=== PATIENT | male | born 1990 | race Caucasian/White ===

== ENCOUNTER 2020-05-11 14:22 | Emergency (ER) | payer BC, SELFPAY ==
[2020-05-11 14:51] VITALS: BP 148/72; PULSE 85; RESP 16; TEMP 36.9; O2SAT 99; BMI 25.8
[2020-05-11 15:08] LABS: UTC Strep Screen (Rapid) Positive (Negative)
--- NOTE | 2020-05-11 15:09 | HMH.EDUTC ---
[facility] [place] Disposition Clinical Impression: Strep throat Disposition: Home, Self-Care Condition on Discharge: Good Instructions: DI for Strep Throat, Strep Throat, Strep Throat (Alternative Therapy) Additional Instructions: *change toothbrush and toothpaste 24-48 hours after starting to take antibiotics so you do not reinfect yourself Monitor Temp. Tylenol and/or Ibuprofen as needed. ER if fever is no less than 101 despite alternating Tylenol and Ibuprofen * Encourage fluids, water, Gatorade, powerade, pedialyte if infant/toddler/or child *Cold fluids, popsicles and ice cream may feel good on his throat *Monitor Temp, Over the counter Motrin or Tylenol as directed/as needed Tylenol every 4 hours and Motrin every 6 hours (as long as your family doctor has told you that you can take it) for fever or pain. and straight to ER if unable to lower temp less than 101.0 after medication given *Warm salt water gargles may help to soothe the throat *Throat Lozenges *Warm fluids like tea with honey may help to soothe the throat *Sleep elevated *Humidifier/Vaporizer Follow up IMMEDIATELY for new or worsening symptoms or no Noticeable improvement over the next 48-72 hours. 911 for difficulty breathing or swallowing Referrals: Bharath Helm [Primary Care Provider] - As needed Time of Disposition: 15:13 Medical Decision Making - Odell Inquiry Pt receiving controlled substance: No Odell was queried for this patient: No Vital Signs: 05/11/20 14:51 Temperature 98.4 F Temperature Source Oral Pulse Rate [Right Brachial] 85 Respiratory Rate 16 Blood Pressure [Right Arm] 148/72 H Blood Pressure Mean [Right Arm] 97 Blood Pressure Source [Right Arm] Automatic Cuff Blood Pressure Position [Right Arm] Sitting 02 Sat by Pulse Oximetry 99 Oxygen Delivery Method Room Air - Lab Data Lab results reviewed: Yes: I reviewed the patient's lab results. Lab Results 05/11/20 15:06: Strep Scn Rapid Clinic Positive A Orders (Tests/Meds): ED MEDICATIONS Generic Name Dose Route Start Last Admin Trade Name Freq PRN Reason Stop Dose Admin Penicillin G Benzathine 1,200,000 unit 05/11/20 15:10 Bicillin La 1,200,000 Units/2ml Syringe IM 05/11/20 15:11 ONCE ONE Protocol [facility] [place] HPI - General Stated complaint: cold chills @ pm, bad sweats, fever Time Seen by Provider: 05/11/20 15:09 Mode of Arrival: Ambulatory Source of Information: Patient Limitations: No Limitations Description of Symptoms (Recalled from Triage Doc. by RN): PATIENT C/O SORE THROAT X 2 WEEKS AND RECENTLY STARTED RUNNING A FEVER AND CHILLS AT NIGHT. ALSO C/O COUGH AND HEADACHE HEENT Symptoms (Recalled from RN notes): Yes Resp Symptoms (Recalled from RN notes): Yes Skin Symptoms (Recalled from RN notes): No MS Symptoms (Recalled from RN notes): No Functional Status (Recalled from RN notes): WNL - History of Present Illness Provider Complaint: Patient state that he has had sore throat on and off for a couple of weeks now having headaches, body aches and chills States that he is not sure if he may have strep or not States that today he still wasnt feeling well so he came in to get checked - Related Data Home Medications Medication Instructions Recorded Confirmed Buprenorphine HCl/Naloxone HCl 1 each SL DAILY 05/11/20 05/11/20 [Suboxone 8mg/2mg ODT] Allergies Allergy/AdvReac Type Severity Reaction Status Date / Time No Known Allergies Allergy Unverified 08/24/17 14:56 - Worker's Comp Is this a Worker's Comp case?: No [facility] History - Hepatitis A Screen Drug use history?: No High risk sexual behaviors?: No History of sexually transmitted infection?: No Currently employed?: No Childcare worker?: No Do you have indoor plumbing?: Yes Do you have electricity?: Yes Attestation statement:: This patient has been screened for Hepatitis A risk factors. I have reviewed the patient's past medical history: Yes - Social History Smok
[2020-05-11 15:28] VITALS: BP 148/72; PULSE 85; RESP 16; TEMP 36.9; O2SAT 99
== END 2020-05-11 15:31 | disposition home or self-care (01) ==
PROVIDERS: Emergency Provider Nurse Practitioner; PCP Internal Medicine
DX: J02.0 Streptococcal pharyngitis (principal); F17.210 Nicotine dependence, cigarettes, uncomplicated
CPT/HCPCS: 87880; 96372; 99202; J0561

== ENCOUNTER 2021-08-20 09:48 | Emergency (ER) | payer OTHER, SELFPAY ==
[2021-08-20 09:54] VITALS: PULSE 77; RESP 19; O2SAT 100; BMI 26.6
[2021-08-20 11:00] VITALS: BP 135/86; PULSE 77; RESP 18; TEMP 36.7; O2SAT 100; BMI 25.8
--- NOTE | 2021-08-20 11:18 | XR_ITS ---
PROCEDURE: XR FOOT RT MIN 3V CLINICAL INDICATION: STEPPED ON NAIL COMPARISON: No exams were available for comparison FINDINGS: No fracture or dislocation. No lytic or blastic change. There is normal mineralization. The joint spaces are well-preserved. No significant degenerative/arthritic changes. No erosive changes evident. Other findings:There are hypertrophic changes along the distal and dorsal aspect of the 1st metatarsal. There is a small focal area of increased density along the plantar surface of the head of the 5th metatarsal which may represent a small sesamoid bone. One cannot exclude the possibility of foreign body. Please correlate patient's area of pain and tenderness IMPRESSION: There is a small focal area of increased density along the plantar surface of the head of the 5th metatarsal which may represent a small sesamoid bone. One cannot exclude the possibility of foreign body. Please correlate patient's area of pain and tenderness. The head of the 1st metatarsal is not well delineated on the lateral view due to the other overlapping bony structures. Dictated by: Ryan York MD 08/20/2021 12:10 Ryan York MD in OV 08/20/2021 12:10
--- NOTE | 2021-08-20 11:36 | HMH.EDUTC ---
[facility] [place] Clinical Impression: Puncture wound Disposition: Home, Self-Care Condition on Discharge: Good Instructions: DI for Puncture Wound, DTaP Vaccine Additional Instructions: Soak foot several times daily in warm water and epson salt Clean well with antibacterial soap and water Take antibiotics as prescribed Follow up with your Family Doctor if no improvement or any worsening of symptoms Follow up with Podiatry if any worsening of symptoms Prescriptions: Ibuprofen [Ibuprofen 600mg Tablet] 600 mg PO Q6HP PRN #20 tab PRN Reason: Moderate Pain Transmission Status: Received by [facility] clindamycin HCL [Clindamycin HCl] 300 mg PO Q8H 10 Days #30 cap Transmission Status: Received by [facility] Referrals: Bharath Helm [Primary Care Provider] - As needed Karmen Buchanan DPM [Staff Physician] - Forms: Work/School Release Time of Disposition: 12:03 Medical Decision Making - Odell Inquiry Pt receiving controlled substance: No Odell was queried for this patient: No Vital Signs: 08/20/21 09:54 08/20/21 11:00 08/20/21 12:14 Temperature 98.1 F 98.1 F Temperature Source Oral Pulse Rate 77 Pulse Rate [Left Radial] 77 77 Respiratory Rate 19 18 18 Blood Pressure 135/86 Blood Pressure [Left Arm] 135/86 Blood Pressure Mean [Left Arm] 102 Blood Pressure Source [Left Arm] Automatic Cuff Blood Pressure Position [Left Arm] Sitting 02 Sat by Pulse Oximetry 100 100 Oxygen Delivery Method Room Air Room Air Orders (Tests/Meds): ED MEDICATIONS Discontinued Medications Generic Name Dose Route Start Last Admin Trade Name Freq PRN Reason Stop Dose Admin Tetanus/Reduced Diphtheria/Acell Pertussis 0.5 ml 08/20/21 09:59 08/20/21 11:07 Tet/Diphth/Pert-Adult 0.5ml Syringe IM 08/20/21 10:00 0.5 ml .ONCE ONE Administration - Radiology Data #1 Image(s): Foot/Toes Image Reviewed: Yes I reviewed the patient's radiology image Preliminary Findings: Normal/NAD Medical Decision Narrative: Medication discussed with pharmacy [facility] [place] - General Stated complaint: AO 1214 stepped on rusted nail, foot swelling Time Seen by Provider: 08/20/21 11:37 Mode of Arrival: Ambulatory Source of Information: Patient Limitations: No Limitations Description of Symptoms (Recalled from Triage Doc. by RN): PATIENT STATES HE STEPPED ON A DARRYN NAIL WITH RIGHT FOOT YESTERDAY AND HIS FOOT IS NOW RED AND SWOLLEN. PATIENT IS NOT UP TO DATE ON TDAP HEENT Symptoms (Recalled from RN notes): No Resp Symptoms (Recalled from RN notes): No Skin Symptoms (Recalled from RN notes): Yes MS Symptoms (Recalled from RN notes): No Functional Status (Recalled from RN notes): WNL - History of Present Illness Provider Complaint: Patient state that he stepped on darryn nail yesterday and it went through the bottom of his boot States that since then he has been having redness and swelling to his foot and he is not up to date on his tetanus so he came in to get a tetanus shot and see if may need some antibiotics for his foot - Related Data Home Medications Medication Instructions Recorded Confirmed Buprenorphine HCl/Naloxone HCl 1 each SL DAILY 05/11/20 05/11/20 [Suboxone 8mg/2mg ODT] Previous Rx's Medication Instructions Recorded Ibuprofen [Ibuprofen 600mg 600 mg PO Q6HP PRN #20 tab 08/20/21 Tablet] clindamycin HCL [Clindamycin HCl] 300 mg PO Q8H 10 Days #30 cap 08/20/21 Allergies Allergy/AdvReac Type Severity Reaction Status Date / Time No Known Allergies Allergy Verified 08/20/21 09:56 - Worker's Comp Is this a Worker's Comp case?: No H History - Hepatitis A Screen Drug use history?: No High risk sexual behaviors?: No History of sexually transmitted infection?: No Currently employed?: No Childcare worker?: No Do you have indoor plumbing?: Yes Do you have electricity?: Yes Attestation statement:: This patient has been scree
[2021-08-20 12:14] VITALS: BP 135/86; PULSE 77; RESP 18; TEMP 36.7; O2SAT 100
== END 2021-08-20 12:15 | disposition home or self-care (01) ==
PROVIDERS: Emergency Provider Nurse Practitioner; PCP Internal Medicine
DX: S91.331A Puncture wound without foreign body, right foot, initial encounter (principal); W22.8XXA Striking against or struck by other objects, initial encounter; Y92.89 Other specified places as the place of occurrence of the external cause; Z23 Encounter for immunization
CPT/HCPCS: 73630; 90471; 90715; 99202; G0463

== ENCOUNTER 2021-08-23 16:18 | Emergency (ER) | payer OTHER, SELFPAY ==
[2021-08-23 17:21] VITALS: BP 142/86; PULSE 94; RESP 18; TEMP 37; O2SAT 98; BMI 24.3
[2021-08-23 18:00] LABS: Basophils # 0.1 K/mm3 (0-0.2); Basophils % 0.9 % (0.1-2.0); Eosinophils # 0.2 K/mm3 (0.0-0.4); Eosinophils % 1.5 % (0.1-12.0); Hematocrit 41.9 % (42.0-52.0); Hemoglobin 14.6 g/dL (14.1-18.0); Lymphocytes # 2.6 K/mm3 (0.7-4.5); Lymphocytes % 23.4 % (10-50); Mean Corpuscular HGB Conc 34.8 g/dL (31.8-35.4); Mean Corpuscular Hemoglobin 28.1 pg (27.0-31.2); Mean Corpuscular Volume 80.8 fl (80-94); Mean Platelet Volume 7.3 fl (7.4-10.4); Monocytes # 0.6 K/mm3 (0.1-1.0); Monocytes % 5.2 % (1.7-9.3); Neutrophils # 7.6 K/mm3 (1.8-7.8); Neutrophils % 68.9 % (37.0-80.0); Platelet Count 267 K/mm3 (142-424); Red Blood Count 5.19 M/mm3 (4.60-6.20); Red Cell Distribution Width 13.9 % (11.5-17.5)
[2021-08-23 18:10] LABS: Chloride 99 mmol/L (98-107); Potassium 3.3 mmoL/L (3.5-5.1); Sodium 139 mmol/L (136-145)
--- NOTE | 2021-08-23 18:10 | HMH.EDUTC ---
[facility] [place] Disposition Clinical Impression: Infection of right foot Puncture wound of right foot Qualifiers: Encounter type: initial encounter Qualified Code(s): S91.331A - Puncture wound without foreign body, right foot, initial encounter Disposition: Still a Patient Condition on Discharge: Fair Referrals: Bharath Helm [Primary Care Provider] - Time of Disposition: 19:03 Medical Decision Making - Medical Records Medical records reviewed: No: I reviewed the patient's medical records. - Odell Inquiry Pt receiving controlled substance: No Vital Signs: 08/23/21 17:21 Temperature 98.6 F Temperature Source Oral Pulse Rate [Left] 94 H Respiratory Rate 18 Blood Pressure [Right Arm] 142/86 H Blood Pressure Mean [Right Arm] 104 02 Sat by Pulse Oximetry 98 - Lab Data Lab Results 08/23/21 17:43: WBC 11.0 H, RBC 5.19, Hgb 14.6, Hct 41.9 L, MCV 80.8, MCH 28.1, MCHC 34.8, RDW 13.9, Plt Count 267, MPV 7.3 L, Neut % (Auto) 68.9, Lymph % (Auto) 23.4, [place] % (Auto) 5.2, Eos % (Auto) 1.5, Baso % (Auto) 0.9, Neut # (Auto) 7.6, Lymph # (Auto) 2.6, [place] # (Auto) 0.6, Eos # (Auto) 0.2, Baso # (Auto) 0.1, ESR 19 H 08/23/21 17:43: Sodium 139, Potassium 3.3 L, Chloride 99, Carbon Dioxide 31 H, Anion Gap 12.3, BUN 12, Creatinine 1.10, Estimated Creat Clear 104, Estimated GFR 77, Est GFR ( Amer) 93, Glucose 99, Calcium 9.1, C-Reactive Protein 44.1 H Result diagrams: 08/23/21 17:43 08/23/21 17:43 Medical Decision Narrative: He was transferred to the er b/c of crp 44 and the presence of a foot infection. [facility] [place] HPI - General Stated complaint: stepped on nail, foot swelling Time Seen by Provider: 08/23/21 18:00 Mode of Arrival: Ambulatory Source of Information: Patient Limitations: No Limitations Description of Symptoms (Recalled from Triage Doc. by RN): pt stepped on a nail with his R foot on 08/19 and was seen in the [facility] 08/20. pt has been taking clindamycin. pts L foot, ankle and lower leg are edematous. pts foot is bright red and hot to the touch. HEENT Symptoms (Recalled from RN notes): No Resp Symptoms (Recalled from RN notes): No Skin Symptoms (Recalled from RN notes): No MS Symptoms (Recalled from RN notes): Yes Functional Status (Recalled from RN notes): wnl - History of Present Illness Provider Complaint: He stepped on a nail 4 days ago. He came here and was started on clindamycin. He states that since then he has had worsening pain and swelling. - Related Data Home Medications Medication Instructions Recorded Confirmed Buprenorphine HCl/Naloxone HCl 1 each SL DAILY 05/11/20 05/11/20 [Suboxone 8mg/2mg ODT] Previous Rx's Medication Instructions Recorded Ibuprofen [Ibuprofen 600mg 600 mg PO Q6HP PRN #20 tab 08/20/21 Tablet] clindamycin HCL [Clindamycin HCl] 300 mg PO Q8H 10 Days #30 cap 08/20/21 Allergies Allergy/AdvReac Type Severity Reaction Status Date / Time No Known Allergies Allergy Verified 08/20/21 09:56 - Worker's Comp Is this a Worker's Comp case?: No [facility] History - Hepatitis A Screen Drug use history?: No High risk sexual behaviors?: No History of sexually transmitted infection?: No Currently employed?: No Childcare worker?: No Do you have indoor plumbing?: Yes Do you have electricity?: Yes Attestation statement:: This patient has been screened for Hepatitis A risk factors. I have reviewed the patient's past medical history: No - Social History Smoking Status: Current every day smoker Tobacco Type: cigarettes # Packs/Day (cigarettes): 1 Alcohol Intake: never Occupational Status: other ROS Obtained: Yes All systems reviewed & no additional complaints - Constitutional Constitutional: Denies chills, Denies fever(s), Reports poor appetite, Reports malaise - Eyes Eyes: Denies eye discharge - ENT Ears, Nose, Mouth, and Throat: Denies sore throat - Cardiovascular Cardiovascular: Denies chest pain - Respiratory Respiratory: Denies chest c
[2021-08-23 18:13] LABS: Anion Gap 12.3 mEq/L (5-15); Blood Urea Nitrogen 12 mg/dl (9-20); Calcium 9.1 mg/dl (8.4-10.2); Carbon Dioxide 31 mmol/L (22.0-30.0); Creatinine Clearance Estimated 104 mL/min (50-200); Estimated Glomerular Filt Rate 77 ml/min (>60); GFR (African American) 93 ML/MIN (>60); Glucose 99 mg/dl (74-100)
[2021-08-23 18:19] LABS: C-Reactive Protein 44.1 mg/L (0-4)
[2021-08-23 18:40] LABS: Erythrocyte Sedimentation Rate 19 mm/hr (0-15)
--- NOTE | 2021-08-23 19:18 | CT_ITS ---
PROCEDURE INFORMATION: Exam: CT Right Lower Extremity With Contrast, Foot Exam date and time: 08/23/2021 7:18 PM Age: 31 years old Clinical indication: Injury or trauma; Other: Stepped on nail now infection; Blunt trauma; Right; Injury date: 08/23/2021; Patient HX: This is RT foot injury RT foot CT with contrast; Additional info: Foot injury RT foot stepped on nail TECHNIQUE: Imaging protocol: CT of the Right lower extremity with intravenous contrast was performed. Exam focused on the foot. Radiation optimization: All CT scans at this facility use at least one of these dose optimization techniques: automated exposure control; mA and/or kV adjustment per patient size (includes targeted exams where dose is matched to clinical indication); or iterative reconstruction. Contrast material: ISOVUE; Contrast volume: 100 ml; Contrast route: IV; COMPARISON: No relevant prior studies available. FINDINGS: Bones/joints: Normal. No acute fracture or dislocation. There are 2 benign bone islands present within the cuboid, thought to be of no clinical significance. Soft tissues: There is diffuse edema of soft tissues of the right foot. No evidence of subcutaneous emphysema. There is no evidence of peripherally enhancing collection to suggest the presence of abscess. IMPRESSION: 1. Diffuse soft tissue swelling of the right foot, compatible with cellulitis. No evidence of abscess. 2. No evidence of focal osseous destruction/osteomyelitis. 3. No evidence of radiopaque foreign body.
--- NOTE | 2021-08-23 20:21 | PC.NURSE ---
Spoke with Thomas with [facility] at this time for Vanc dosing. He is going to place orders for 1 time dose and cont infusion
--- NOTE | 2021-08-23 20:28 | PC.NURSE ---
Pt attempted to leave out exit door at this time. CORINNE Paiz noticed pt heading for exit with his IV still in so she attempted to stop him at exit. Pt opened door and his significant other was in doorway. Both the significant of and the pt began to curse at staff. This RN and Pattern Clerk CORINNE Price when over to de-escalate the situation. Pt asked why he could not have his significant other back in the ER and pt was educated on visitor policy. Pt stated I've been here for 5 and a half hours and y'all ain't done nothing for my foot. Significant other stated he should have gotten some medication by now. I explained to both of them that I had just spoke with the pharmacy in regards to his antibiotic dosing and reminded them that he had just came over from the [facility] at 7:30pm and his scans had just been read by radiology a short time ago. Pt continued to argue and curse staff while Chencho removed IV from pt.
--- NOTE | 2021-08-23 20:31 | PC.NURSE ---
Pt elected to leave facility at this time, rather than receive antibiotics or continue care. Pt was cursing staff and attempted to leave with IV intact. acoustical tile carpenters supervisor and 2 ER nurses at registration attempting to speak with patient. Pt is belligerent and will not agree to stay. IV removed and left facility.
--- NOTE | 2021-08-23 20:34 | HMH.EDGENADL ---
ED Disposition Clinical Impression: Infection of right foot Puncture wound of right foot Qualifiers: Encounter type: initial encounter Qualified Code(s): S91.331A - Puncture wound without foreign body, right foot, initial encounter Disposition: Left Against Medical Advice Condition on Discharge: Serious Referrals: Bharath Helm [Primary Care Provider] - - Critical Care Critical Care Time: No Attestation: On 08/23/21, the high probability of a clinically significant, sudden or life threatening deterioration of the following system(s) required my full and direct attention, intervention and personal management. The time I documented below is in addition to time spent performing reported procedures but includes the following listed in this critical care notation. Medical Decision Making - Odell Inquiry Pt receiving controlled substance: No Vital Signs: 08/23/21 17:21 Temperature 98.6 F Temperature Source Oral Pulse Rate [Left] 94 H Respiratory Rate 18 Blood Pressure [Right Arm] 142/86 H Blood Pressure Mean [Right Arm] 104 02 Sat by Pulse Oximetry 98 - Lab Data Lab Results 08/23/21 17:43: WBC 11.0 H, RBC 5.19, Hgb 14.6, Hct 41.9 L, MCV 80.8, MCH 28.1, MCHC 34.8, RDW 13.9, Plt Count 267, MPV 7.3 L, Neut % (Auto) 68.9, Lymph % (Auto) 23.4, [place] % (Auto) 5.2, Eos % (Auto) 1.5, Baso % (Auto) 0.9, Neut # (Auto) 7.6, Lymph # (Auto) 2.6, [place] # (Auto) 0.6, Eos # (Auto) 0.2, Baso # (Auto) 0.1, ESR 19 H 08/23/21 17:43: Sodium 139, Potassium 3.3 L, Chloride 99, Carbon Dioxide 31 H, Anion Gap 12.3, BUN 12, Creatinine 1.10, Estimated Creat Clear 104, Estimated GFR 77, Est GFR ( Amer) 93, Glucose 99, Calcium 9.1, C-Reactive Protein 44.1 H Result diagrams: 08/23/21 17:43 08/23/21 17:43 Orders (Tests/Meds): ED MEDICATIONS Generic Name Dose Route Start Last Admin Trade Name Freq PRN Reason Stop Dose Admin Piperacillin Sod/Tazobactam 50 mls @ 100 mls/hr 08/23/21 20:15 Sod 3.375 gm/ Sodium Chloride IV 09/06/21 20:14 Q8H ROMINA Vancomycin/PEG/NADA/Lysine/Water 1.5 gm in 300 mls @ 150 mls/hr 08/23/21 20:30 Vancomycin 1.5gm/300ml (Peg) Premix IV 08/23/21 22:29 ONCE ONE Vancomycin/PEG/NADA/Lysine/Water 1.5 gm in 300 mls @ 150 mls/hr 08/24/21 09:00 Vancomycin 1.5gm/300ml (Peg) Premix IV 09/07/21 08:59 Q12H ROMINA Miscellaneous 1 each 08/23/21 20:15 Vancomycin Consult Request * 09/22/21 20:14 CONSULT PHARMACY ROMINA Discontinued Medications Generic Name Dose Route Start Last Admin Trade Name Freq PRN Reason Stop Dose Admin Potassium Chloride 40 meq 08/23/21 20:14 Potassium Chloride 20meq Tab PO 08/23/21 20:15 ONCE ONE ORDERS Category Date Time Status CT foot RT w con Stat Cat Scan 08/23/21 19:18 Taken Medical Decision Narrative: In summary this is a 31-year-old male who presents to the emergency department with infection of his right foot. On Wednesday he stepped on a nail and has been taking clindamycin without improvement. Differential diagnosis includes cellulitis, abscess, osteomyelitis, bacteremia. Labs from urgent treatment center reviewed and the patient has a slight leukocytosis to 11, elevated CRP of 44, slight hypokalemia to 3.3. Physical exam is very concerning for significant cellulitis has now failed outpatient therapy. Given this CT of the foot was ordered and the patient was started on vancomycin and Zosyn. He was also given oral potassium replacement. On my initial assessment I discussed with the patient that he would require admission given the significance of his infection and his failure of outpatient management. The patient voiced understanding and seemed okay with this. A few minutes later there was yelling in the hallway between nursing staff and the patient and the patient eloped. I was told he was very angry because he could not have a visitor. During my initial assessment I did emphasize the need for gets of his infectio
[2021-08-23 20:59] VITALS: BP 00/0; PULSE 0; RESP 0; TEMP -17.7; TEMP 0; O2SAT 0
--- NOTE | 2021-08-23 21:39 | PC.NURSE ---
notified at 2030 pt elected to leave without treatment to go somewhere else
== END 2021-08-23 21:42 | disposition left against medical advice (07) ==
LOC: UTC 16:21 → ER 18:59
PROVIDERS: Nurse Practitioner Family; Emergency Provider Emergency Medicine; PCP Internal Medicine
DX: L08.9 Local infection of the skin and subcutaneous tissue, unspecified (principal); S91.331A Puncture wound without foreign body, right foot, initial encounter; F17.210 Nicotine dependence, cigarettes, uncomplicated; K50.90 Crohn's disease, unspecified, without complications
CPT/HCPCS: 73701; 80048; 85025; 85651; 86140; 99281; Q9967

== ENCOUNTER 2023-02-06 22:00 | Inpatient (IN) | payer MEDICAID, SELFPAY ==
[2023-02-06 22:05] VITALS: BMI 28.7
--- NOTE | 2023-02-06 22:05 | ECG_ITS ---
APPROVED REPORT Exam: Resting ECG HR:103 bpm ECG Measurements Heart Rate 103 AXES MD 128 P 58 QRSd 102 QRS 64 QT 299 T 53 QTc 358 Conclusion SINUS TACHYCARDIA O/w NORMAL ECG UNCONFIRMED REPORT Electronically signed by : Jayden Deluca MD 02/07/2023 11:31:46
--- NOTE | 2023-02-06 22:05 | CT_ITS ---
PROCEDURE INFORMATION: Exam: CT Head Without Contrast Exam date and time: 02/06/2023 10:30 PM Age: 32 years old Clinical indication: Other: Confusion TECHNIQUE: Imaging protocol: Computed tomography of the head without contrast. Radiation optimization: All CT scans at this facility use at least one of these dose optimization techniques: automated exposure control; mA and/or kV adjustment per patient size (includes targeted exams where dose is matched to clinical indication); or iterative reconstruction. REPORTING DATA: Count of CT and Cardiac NM exams in prior 12 months: This patient has received 0 known CTs and 0 known cardiac nuclear medicine studies in the 12 months prior to the current study. COMPARISON: No relevant prior studies available. FINDINGS: Brain: Streak hypodense artifacts particularly obscuring the posterior fossa. No evidence of mass effect or midline shift. The rhodes/white matter interfaces are preserved. The basal cisterns are patent. Cerebral ventricles: No ventriculomegaly. Paranasal sinuses: Visualized sinuses are unremarkable. No fluid levels. Mastoid air cells: Visualized mastoid air cells are well aerated. Bones/joints: Unremarkable. No acute fracture. Soft tissues: Unremarkable. IMPRESSION: 1. No CT evidence of intracranial hemorrhage, mass effect, midline shift or hydrocephalus. 2. Streak hypodense artifacts particularly obscuring the posterior fossa. Consider follow-up CT when clinically possible for better evaluation.
--- NOTE | 2023-02-06 22:05 | CT_ITS ---
PROCEDURE INFORMATION: Exam: CT Lumbar Spine With Contrast Exam date and time: 02/06/2023 11:40 PM Age: 32 years old Clinical indication: Other: Confusion; Additional info: Confusion, R/O abscess TECHNIQUE: Imaging protocol: Computed tomography of the lumbar spine with contrast. Radiation optimization: All CT scans at this facility use at least one of these dose optimization techniques: automated exposure control; mA and/or kV adjustment per patient size (includes targeted exams where dose is matched to clinical indication); or iterative reconstruction. Contrast material: ISOVUE; Contrast volume: 75 ml; Contrast route: IV; REPORTING DATA: Count of CT and Cardiac NM exams in prior 12 months: This patient has received 0 known CTs and 0 known cardiac nuclear medicine studies in the 12 months prior to the current study. COMPARISON: CT THORACIC SPINE W CON 02/06/2023 11:36 PM FINDINGS: Bones/joints: No acute fracture. Normal alignment. No evidence of bone destruction to suggest osteomyelitis. Spinal canal: Evaluation of the spinal canal contents is very limited as only bone windows were submitted for interpretation. L1-L2: No significant disc bulge or herniation. No severe spinal canal stenosis. No significant neural foraminal narrowing. L2-L3: No significant disc bulge or herniation. No severe spinal canal stenosis. No significant neural foraminal narrowing. L3-L4: No significant disc bulge or herniation. No severe spinal canal stenosis. No significant neural foraminal narrowing. L4-L5: Broad-based disc protrusion. Mild central canal stenosis. No significant neural foraminal narrowing. L5-S1: Broad-based epidural density causing moderate central canal stenosis and right lateral recess stenosis. Right foraminal discogenic/osteophytic complex causing right foraminal stenosis. Soft tissues: Markedly limited visualization as only Bone windows were submitted for interpretation. No pathologic enhancements are visualized. IMPRESSION: 1. No acute fractures or listhesis. 2. Evaluat one is ion of the spinal canal contents and soft tissue is very limited as only bone windows were submitted for interpretation. 3. L5-S1 broad-based epidural density causing moderate central canal stenosis and right lateral recess stenosis. Further characterization is not possible with the provided images. If infection remains of clinical concern consider contrast enhanced MRI. 4. Right foraminal discogenic/osteophytic complex causing right foraminal stenosis.
--- NOTE | 2023-02-06 22:05 | CT_ITS ---
PROCEDURE INFORMATION: Exam: CT Cervical Spine with Contrast Exam date and time: 02/06/2023 11:32 PM Age: 32 years old Clinical indication: Other: Confusion; Additional info: Confusion, R/O abcess TECHNIQUE: Imaging protocol: Computed tomography of the cervical spine with contrast. Radiation optimization: All CT scans at this facility use at least one of these dose optimization techniques: automated exposure control; mA and/or kV adjustment per patient size (includes targeted exams where dose is matched to clinical indication); or iterative reconstruction. Contrast material: ISOVUE; Contrast volume: 75 ml; Contrast route: IV; REPORTING DATA: Count of CT and Cardiac NM exams in prior 12 months: This patient has received 0 known CTs and 0 known cardiac nuclear medicine studies in the 12 months prior to the current study. COMPARISON: CT HEAD/BRAIN WO CON 02/06/2023 10:30 PM FINDINGS: Bones/joints: No acute fracture. Normal alignment. No evidence of bone destruction to suggest osteomyelitis. C2-C3: No significant disc bulge or herniation. No severe spinal canal stenosis. No significant neural foraminal narrowing. C3-C4: No significant disc bulge or herniation. No severe spinal canal stenosis. No significant neural foraminal narrowing. C4-C5: No significant disc bulge or herniation. No severe spinal canal stenosis. No significant neural foraminal narrowing. C5-C6: No significant disc bulge or herniation. No severe spinal canal stenosis. No significant neural foraminal narrowing. C6-C7: No significant disc bulge or herniation. No severe spinal canal stenosis. No significant neural foraminal narrowing. C7-T1: No significant disc bulge or herniation. No severe spinal canal stenosis. No significant neural foraminal narrowing. Lungs: Lung apices are normal. Soft tissues: Evaluation of the soft tissues is limited as only bone windows were submitted for interpretation. IMPRESSION: 1. No acute fractures or listhesis. 2. No evidence of central canal or foraminal stenosis.
--- NOTE | 2023-02-06 22:05 | CT_ITS ---
PROCEDURE INFORMATION: Exam: CT Thoracic Spine With Contrast Exam date and time: 02/06/2023 11:36 PM Age: 32 years old Clinical indication: Other: Confusion; Additional info: Confusion, R/O abscess TECHNIQUE: Imaging protocol: Computed tomography of the thoracic spine with contrast. Radiation optimization: All CT scans at this facility use at least one of these dose optimization techniques: automated exposure control; mA and/or kV adjustment per patient size (includes targeted exams where dose is matched to clinical indication); or iterative reconstruction. Contrast material: ISOVUE; Contrast volume: 75 ml; Contrast route: IV; REPORTING DATA: Count of CT and Cardiac NM exams in prior 12 months: This patient has received 0 known CTs and 0 known cardiac nuclear medicine studies in the 12 months prior to the current study. COMPARISON: CT CERVICAL SPINE W CON 02/06/2023 11:32 PM FINDINGS: Bones/joints: No acute fracture. Normal alignment. Disc desiccation and vertebral endplate erosions. No significant disc bulge or herniation. No severe spinal canal stenosis. No significant neural foraminal narrowing. Spinal canal: Visualization of the canal contents is limited by CT resolution. Soft tissues: Evaluation of the soft tissues is limited as only windows optimized bone, too grainy for soft tissue evaluation, were submitted for interpretation. IMPRESSION: 1. No acute fractures or listhesis. 2. Diffuse thoracic disc desiccation and vertebral endplate erosions.
--- NOTE | 2023-02-06 22:07 | XR_ITS ---
PROCEDURE INFORMATION: Exam: XR Chest Exam date and time: 02/06/2023 11:44 PM Age: 32 years old Clinical indication: Other: Confusion TECHNIQUE: Imaging protocol: Radiologic exam of the chest. Views: 1 view. COMPARISON: CT THORACIC SPINE W CON 02/06/2023 11:36 PM FINDINGS: Lungs: Well aerated with no evidence of consolidations, interstitial patterns or pulmonary nodules. Pleural spaces: No evidence of effusions or pneumothorax. Heart/Mediastinum: The cardiomediastinal silhouette is normal in size and configuration. There is no evidence of cardiomegaly. Bones/joints: Intact. IMPRESSION: No acute findings.
[2023-02-06 22:36] LABS: Basophils % 0.1 % (0.1-2.0); Eosinophils # 0.1 K/mm3 (0.0-0.4); Eosinophils % 0.6 % (0.1-12.0); Hemoglobin 13.4 g/dL (14.1-18.0); Lymphocytes % 6.2 % (10-50); Mean Corpuscular HGB Conc 33.4 g/dL (31.8-35.4); Mean Corpuscular Hemoglobin 27.2 pg (27.0-31.2); Mean Corpuscular Volume 81.5 fl (80-94); Mean Platelet Volume 7.6 fl (7.4-10.4); Monocytes # 0.3 K/mm3 (0.1-1.0); Monocytes % 1.8 % (1.7-9.3); Neutrophils # 14.7 K/mm3 (1.8-7.8); Neutrophils % 91.4 % (37.0-80.0); Platelet Count 235 K/mm3 (142-424); Red Blood Count 4.91 M/mm3 (4.60-6.20); Red Cell Distribution Width 13.8 % (11.5-17.5); White Blood Count 16.1 K/mm3 (4.8-10.8)
[2023-02-06 22:38] LABS: MANUAL DIFFERENTIAL MANUAL DIFFERENTIAL (MANUAL DIFF)
[2023-02-06 22:39] LABS: Chloride 97 mmol/L (98-107); Potassium 3.2 mmoL/L (3.5-5.1); Sodium 136 mmol/L (136-145)
[2023-02-06 22:41] LABS: Alanine Aminotransferase 24 U/L (12-78); Aspartate Amino Transferase 24 U/L (17-59); Blood Urea Nitrogen 14 mg/dl (9-20); Creatinine Clearance Estimated 134 mL/min (50-200); Estimated Glomerular Filt Rate 86 ml/min (>60); GFR (African American) 103 ML/MIN (>60)
[2023-02-06 22:42] LABS: Albumin Level 3.9 g/dl (3.5-5.0); Albumin/Globulin Ratio 1.1 (1.1-1.8); Alkaline Phosphatase 61 U/L (38-126); Anion Gap 13.2 mEq/L (5-15); Bilirubin,Total 0.8 mg/dl (0.2-1.3); Calcium 8.9 mg/dl (8.4-10.2); Carbon Dioxide 29 mmol/L (22.0-30.0); Creatine Kinase 27 U/L (55-170); Globulin 3.5 g/dL (1.3-3.2); Glucose 106 mg/dl (74-100); Lipase 45 U/L (23-300); Total Protein,Serum 7.4 g/dl (6.3-8.2)
[2023-02-06 22:43] LABS: Lactic Acid 1.5 mmol/L (0.7-2.1)
[2023-02-06 22:44] LABS: Acetaminophen < 10 ug/ml (10-30); Ethyl Alcohol < 10 mg/dl (0-10)
[2023-02-06 22:48] LABS: C-Reactive Protein 48.2 mg/L (0-4)
--- NOTE | 2023-02-06 22:48 | PC.NURSE ---
Pt gone to RAD via stretcher
[2023-02-06 22:49] LABS: Salicylate < 1.0 mg/dL (2.0-20.0)
--- NOTE | 2023-02-06 22:52 | PC.NURSE ---
Pt returned from RAD
--- NOTE | 2023-02-06 22:54 | PC.NURSE ---
Dr. Machado at
[2023-02-06 22:57] LABS: Troponin I 0.04 ng/ml (0.00-0.034)
[2023-02-06 23:03] LABS: Erythrocyte Sedimentation Rate 20 mm/hr (0-15)
[2023-02-06 23:07] LABS: Lymphocytes % 12 % (10-50); Monocytes % 1 % (2-9); Neutrophils % 87 % (42-76); Platelet Estimate Normal; Total Cells Counted 100
[2023-02-06 23:08] LABS: RBC Morphology Normal
[2023-02-06 23:26] VITALS: BP 101/59; PULSE 119; RESP 20; TEMP 39.5; O2SAT 96; BMI 29.5
[2023-02-06 23:28] LABS: Microscopic, Urine URINE MICROSCOPIC (MICROSCOPIC)
--- NOTE | 2023-02-06 23:30 | PC.NURSE ---
Patients family updated.
[2023-02-06 23:36] LABS: Appearance,Urine CLEAR (Clear); Bilirubin,Urine Negative (Negative); Blood, Urine 2+ (Negative); Color,Urine YELLOW (Yellow); Glucose,Urine (UA) Negative (Negative); Ketones,Urine Negative (Negative); Leukocyte Esterase,Urine Negative (Negative); Nitrate,Urine Negative (Negative); Protein,Urine Negative (Negative); Urobilinogen,Urine 0.2 EU/dl (0.2)
--- NOTE | 2023-02-06 23:42 | HMH.EDAMS ---
Discharge Plan Disposition Patient Disposition: Admitted Chief Complaint: Altered Mental Status Prescriptions Prescriptions: No Action buprenorphine-naloxone 1 EACH tablet, sublingual 1 each SL DAILY clindamycin HCl 300 MG capsule 300 mg PO Q8H 10 Days Qty: 30 0RF ibuprofen 600 MG tablet 600 mg PO Q6HP PRN (Reason: Moderate Pain) Qty: 20 0RF Discharge ED Provider: Carter (ED),Jean Lai Altered Mental Status HPI General Chief Complaint: Altered Mental Status Stated Complaint: AMS Time Seen by Provider: 02/06/23 22:00 Mode of Arrival: EMS Source of Information: Patient, Significant Other, EMS and Medical Record Limitations: Altered Mental Status Description of Symptoms (Recalled from ER Triage Doc. by RN): per EMS when they arrrived pt had AMS completely disoriented. EMS states the left to get food and before she left the pt seemed at his baseline. when she returned he was altered and was only answering baby and daddy. pt presents febrile at 103.1 rectal. pt has BLE edema +3 History of Present Illness HPI narrative: noted to be confused at 1930 and no trauma -concern for possible drug use per girlfriend-no rash - denied paulo JUAREZ complaint: altered mental status Onset (ago): hour(s) Timing confirmed by: family member Severity: moderate Consistency of symptoms: waxing and waning Context: drug abuse and recent fever Associated symptoms: denies other symptoms Related Data Home Medications Medication Instructions Recorded Confirmed buprenorphine 8 mg-naloxone 2 mg 1 each SL DAILY ADDICTION 05/11/20 05/11/20 sublingual tablet Allergies Allergy/AdvReac Type Severity Reaction Status Date / Time No Known Allergies Allergy Verified 08/20/21 09:56 [facility] Disclaimer: The information contained in this section may have been updated after the patient was seen, as this information can be updated by other users. Social History Smoking Status: Current every day smoker tobacco type: cigarettes packs per day: 1 alcohol intake: never current occupational status: other Travel in the last 8 weeks: None ROS Obtained: Yes unobtainable due to mental condition Physical Exam General General appearance: alert and other (confused ) Head Head exam: normocephalic Eye Eye exam: Present PERRL and EOMI ENT ENT exam: Present mucous membranes dry Neck Neck exam: Present full ROM and trachea midline; Absent meningismus Respiratory Respiratory exam: Present normal lung sounds bilaterally; Absent respiratory distress Cardiovascular Cardiovascular exam: Present regular rate; Absent systolic murmur or rubs Abdominal Exam Abdominal exam: Present soft; Absent tenderness Extremities Exam Extremities exam: Present full ROM Neurological Exam Neurological exam: Present alert, CN II-XII intact and other ([id number]); Absent oriented X3 or motor sensory deficit Skin Skin exam: Absent rash Medical Decision Making Medical Records Medical records reviewed: Yes I reviewed the patient's medical records. [place] Inquiry Pt receiving controlled substance: No Vital Signs: 02/06/23 23:26 02/06/23 23:46 02/07/23 00:00 Temperature 103.1 F H Temperature Source Rectal Pulse Rate 119 H 115 H Pulse Rate [Left] 119 H Respiratory Rate 20 20 22 Blood Pressure 85/46 L 72/49 L Blood Pressure [Right Arm] 101/59 L Blood Pressure Mean [Right Arm] 73 Blood Pressure Source Blood Pressure Source [Right Arm] Automatic Cuff Blood Pressure Position Blood Pressure Position [Right Arm] Sitting 02 Sat by Pulse Oximetry 96 93 L 93 L Oxygen Delivery Method Room Air Room Air 02/07/23 00:15 02/07/23 00:30 02/07/23 01:22 Temperature Temperature Source Pulse Rate 116 H 61 117 H Pulse Rate [Left] Respiratory Rate 24 11 L Blood Pressure 85/45 L 85/41 L 84/38 L Blood Pressure [Right Arm] Blood Pressure Mean [Right Arm] Blood Pressure Source Manual Cuff/ Doppler Blood Pressu
[2023-02-06 23:46] VITALS: BP 85/46; PULSE 119; RESP 20; O2SAT 93
[2023-02-06 23:48] LABS: Barbiturates Screen,Urine Negative ng/ml (<200)
[2023-02-06 23:49] LABS: Amphetamine/Metha Screen,Urine Negative ng/ml (<1000); Benzodiazepines Screen,Urine Negative ng/ml (<200); RBC,Urine Occasional #/hpf (0-3)
[2023-02-06 23:50] LABS: Methadone Screen,Urine Negative ng/ml (<300)
[2023-02-06 23:51] LABS: Cannabinoid Screen,Urine Negative ng/ml (<50); Cocaine Screen,Urine Negative ng/ml (<300)
--- NOTE | 2023-02-06 23:51 | PC.NURSE ---
Pt brother at
[2023-02-06 23:52] LABS: Opiate Screen,Urine Negative ng/ml (<300)
[2023-02-06 23:53] LABS: Phencyclidine Screen,Urine Negative ng/ml (<25)
[2023-02-07] VITALS (43 sets, daily range): BP systolic 72–136; BP diastolic 25–82; PULSE 61–138; RESP 11–35; TEMP 37.2–39.6; O2SAT 86–100; BMI 25.8
--- NOTE | 2023-02-07 | PC.NURSE ---
Manual BP: 80/48. MD notified.
--- NOTE | 2023-02-07 00:30 | PC.NURSE ---
Patients family updated. Patient has IV fluids going in response to his hypotension.
[2023-02-07 00:38] LABS: NT Pro Brain Natriuretic Pep. 1000 pg/mL (0-125)
[2023-02-07 00:57] LABS: Procalcitonin 1.71 ng/mL (0.0-2.0)
--- NOTE | 2023-02-07 01:00 | PC.NURSE ---
patient remains hypotensive. Patients brother is at the bedside. Patient is more alert and oriented. Patient is oriented to his self and brother. notified of blood pressure. No new orders.
[2023-02-07 01:51] LABS: Coronavirus 19, PCR Not Detected (NotDetected); Influenza A, PCR Not Detected (NotDetected); Influenza B, PCR Not Detected (NotDetected)
--- NOTE | 2023-02-07 01:51 | PC.NURSE ---
Hospitalist, Eliel, at BS
--- NOTE | 2023-02-07 03:02 | PC.NURSE ---
pt admitted to 218 from ED, report taken from Radha SUN, NOY Burns placed seizure pads on pt's bed, call light within reach
[2023-02-07 03:05] LABS: Adenovirus,PCR Not Detected (NotDetected); Bordetella Pertussis Not Detected (NotDetected); Chlamydophila Pneumoniae, PCR Not Detected (NotDetected); Coronavirus 19, PCR Not Detected (NotDetected); Coronavirus 229E Not Detected (NotDetected); Coronavirus NL63 Not Detected (NotDetected); Coronavirus OC43 Not Detected (NotDetected); Coronovirus HKU1,PCR Not Detected (NotDetected); Human Metapneumovirus Not Detected (NotDetected); Influenza A, PCR Not Detected (NotDetected); Influenza AH1, 2009 Not Detected (NotDetected); Influenza AH1, PCR Not Detected (NotDetected); Influenza AH3,PCR Not Detected (NotDetected); Influenza B, PCR Not Detected (NotDetected); Mycoplasma Pneumoniae, PCR Not Detected (NotDetected); Parainfluenza 1, PCR Not Detected (NotDetected); Parainfluenza 2, PCR Not Detected (NotDetected); Parainfluenza 3, PCR Not Detected (NotDetected); Parainfluenza 4, PCR Not Detected (NotDetected); Respiratory Syncytial Virus Not Detected (NotDetected); Rhinovirus/Enterovirus Not Detected (NotDetected)
[2023-02-07 03:05] LABS: Troponin I 0.15 ng/ml (0.00-0.034)
--- NOTE | 2023-02-07 03:09 | PC.NURSE ---
PAMELLA Julian stated would like the NS MIVF to be at 50mL/hr not the 125mL/hr that is ordered
--- NOTE | 2023-02-07 03:21 | EXP.HP ---
History of Present Illness *Admission Date: 02/07/23 *Reason for visit:: altered mental status, fever, sepsis *History of present illness: Mr. Ruiz is at the 2-year-old male who presented to the ER because of worsening back pain, fatigue, and weakness.? States he had been with his girlfriend earlier in the day, was feeling tired.? She left him briefly in the car and he was going to go work on a tractor.? She returned several hours later and he was still in the car, confused.? She brought him to the ER for further evaluation.? Of note he is on Suboxone.? In the ER he did not improve with initial treatment.? Was found to have an elevated white count, tachypnea, tachycardia.? Had been complaining of back pain for over 2 weeks but is gotten more severe over the past day.? CTs of head, C-spine, T-spine, L-spine with a broad-based lesion noted at L5-S1.? Patient admitted for severe sepsis and further management.? Received dose of vancomycin in the ER.? Received 3 L of IV fluids in the ER.? And a dose of Tylenol for fever. [facility] Disclaimer: The information contained in this section may have been updated after the patient was seen, as this information can be updated by other users. Medical History DDD (degenerative disc disease), lumbar Family History Family history non-contributory Social History Smoking Status: Current every day smoker tobacco type: cigarettes packs per day: 1 alcohol intake: never substance use type: former substance user and IV drugs current occupational status: other Travel in the last 8 weeks: None Review of Systems Review of Systems Review of systems:: other Review of systems (narrative): most info from family and girl friend Constitutional Constitutional: Reports daytime sleepiness, Reports fatigue and Reports fever(s) Eyes Eyes: Reports system reviewed and no additional complaints, except as documented ENT Ears, Nose, Mouth, and Throat: Reports system reviewed and no additional complaints, except as documented and Reports dry mouth *Cardiovascular Comments: no history given *Respiratory Respiratory: Reports as per HPI and Reports other (smoker has rapid resp rate ) *Gastrointestinal Gastrointestinal: Reports system reviewed and no additional complaints, except as documented Comments: history of ulcers in the past *Genitourinary Genitourinary: Reports system reviewed and no additional complaints, except as documented *Musculoskeletal Musculoskeletal: Reports back pain Integumentary/Breasts Skin/Breast: Reports system reviewed and no additional complaints, except as documented *Neurologic Neurologic: Reports behavioral changes Psychiatric Psychiatric: Reports behavioral changes Endocrine Endocrine: Reports fatigue Hematologic/Lymphatic Hematologic/Lymphatic: Reports system reviewed and no additional complaints, except as documented Allergic/Immunologic Allergic/Immunologic: Reports system reviewed and no additional complaints, except as documented Meds Home Medications and Allergies Home Medications Medication Instructions Recorded Confirmed Type Norepinephrine Bitartrate 8 mcg/min IV 02/07/23 Rx [Levophed 4mg/4mL vial] 8 mg ceftriaxone 2 gram intravenous 2 g IV Q24H #0 ea 02/07/23 Rx solution vancomycin 1.25 gram/250 mL in 1.25 g (250 mL) IV Q12H #0 mL 02/07/23 Rx diluent combination IV piggyback New Prescriptions to Start Prescriptions: Norepinephrine Bitartrate [Levophed 4mg/4mL vial] 8 mg Dextrose 5 % in Water [D5W 250mL IV] 250 ml 8 mcg/min IV Allergies Allergy/AdvReac Type Severity Reaction Status Date / Time No Known Allergies Allergy Verified 08/20/21 09:56 Exam Data for Last 24 hours Vital signs and Labs for Last 24 Hours: Temp Pulse Resp BP Pulse Ox
--- NOTE | 2023-02-07 03:39 | PC.NURSE ---
hiram TOWNSEND spoke with PAMELLA Julian about pt's hypotension, PAMELLA stated to keep NS MIVF at 125mL/hr instead of at 50mL/hr
[2023-02-07 03:53] LABS: Chloride 101 mmol/L (98-107)
[2023-02-07 03:54] LABS: Potassium 3.5 mmoL/L (3.5-5.1); Sodium 135 mmol/L (136-145)
[2023-02-07 03:56] LABS: Alanine Aminotransferase 27 U/L (12-78); Alkaline Phosphatase 48 U/L (38-126); Anion Gap 12.5 mEq/L (5-15); Aspartate Amino Transferase 28 U/L (17-59); Bilirubin,Total 0.8 mg/dl (0.2-1.3); Blood Urea Nitrogen 16 mg/dl (9-20); Carbon Dioxide 25 mmol/L (22.0-30.0); Creatinine Clearance Estimated 96 mL/min (50-200); Estimated Glomerular Filt Rate 58 ml/min (>60); GFR (African American) 70 ML/MIN (>60)
[2023-02-07 03:57] LABS: Albumin Level 2.9 g/dl (3.5-5.0); Albumin/Globulin Ratio 1.1 (1.1-1.8); Calcium 7.4 mg/dl (8.4-10.2); Globulin 2.6 g/dL (1.3-3.2); Glucose 104 mg/dl (74-100); Magnesium 1.2 mg/dl (1.6-2.3); Total Protein,Serum 5.5 g/dl (6.3-8.2)
[2023-02-07 04:06] LABS: Lactic Acid 2.2 mmol/L (0.7-2.1)
[2023-02-07 04:07] LABS: Basophils % 0.2 % (0.1-2.0); Eosinophils % 0.2 % (0.1-12.0); Hematocrit 37.2 % (42.0-52.0); Hemoglobin 12.4 g/dL (14.1-18.0); Lymphocytes # 0.6 K/mm3 (0.7-4.5); Lymphocytes % 4.4 % (10-50); Mean Corpuscular HGB Conc 33.5 g/dL (31.8-35.4); Mean Corpuscular Hemoglobin 27.4 pg (27.0-31.2); Mean Corpuscular Volume 81.9 fl (80-94); Mean Platelet Volume 7.5 fl (7.4-10.4); Monocytes # 0.4 K/mm3 (0.1-1.0); Monocytes % 2.6 % (1.7-9.3); Neutrophils # 13.1 K/mm3 (1.8-7.8); Neutrophils % 92.6 % (37.0-80.0); Red Blood Count 4.53 M/mm3 (4.60-6.20); Red Cell Distribution Width 13.8 % (11.5-17.5); White Blood Count 14.1 K/mm3 (4.8-10.8)
[2023-02-07 04:08] LABS: Platelet Count 191 K/mm3 (142-424)
[2023-02-07 04:10] LABS: Troponin I 0.19 ng/ml (0.00-0.034)
--- NOTE | 2023-02-07 04:51 | EXP.EVENT.NO ---
mr Ruiz became suddenly uncontrolled up in the bed yelling. pulling all leads off, he was not able to be calmed, family member in room. care and kindness used , but had to had 2 mg. of ativan and after about 8 minutes he was able to lie back down. body is hot to touch, resp rate was 30 , lungs clear , heart tone normal but rate 122. 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 Both are exposed to large amount of animal waste patient is now calm , will place isolation orders in
--- NOTE | 2023-02-07 05:25 | PC.NURSE ---
Spoke with ONEAL Julian concerning increasing heart rate sustaining in the high 120's to 130's and decreasing blood pressure of 76/41. New order for NS 500cc bolus was given. Will continue to monitor.
--- NOTE | 2023-02-07 05:35 | EXP.EVENT.NO ---
patient asleep .. heart rate increseing into 130's bp sys to the 70's . 500 cc bolus given , while infusing bp sys to 110 heart in 120's , will now start and titrate norepinephrine to keep bp greater than 65 map , and try to lower heart rate . paitnet resp rate remains elevated, lungs clear
[2023-02-07 07:42] LABS: Reflex Lactic Add Lactic Reflex
--- NOTE | 2023-02-07 08:16 | HMH.PHAINT1 ---
Pharmacy Intervention Comments: MEDICATION RECONCILIATION COMPLETE USING EXTERNAL PHARMACY FILL HISTORY AND MAURICIO REPORT.
--- NOTE | 2023-02-07 08:16 | PC.NURSE ---
levophed drip increased to 10 mcg per ptrotocol due to bp
[2023-02-07 08:38] LABS: Lactic Acid Follow Up (RFLX 1) 2.5 mmol/L (0.7-2.1)
--- NOTE | 2023-02-07 08:50 | EXP.PHA.CONS ---
Pharmacy Consult Date: 02/07/23 Time: 08:50 Referring provider: DR PAZ Reason for Consult:: VANCOMYCIN DOSING CONSULT Allergies Allergy/AdvReac Type Severity Reaction Status Date / Time No Known Allergies Allergy Verified 08/20/21 09:56 Home Medications Medication Instructions Recorded Confirmed Type buprenorphine 8 mg-naloxone 2 mg 2 each SL DAILY OPIOID USE DISORDER 05/11/20 02/07/23 History sublingual tablet New Prescriptions to Start Prescriptions: Height: 1.88 m Weight: 91.314 kg Laboratory Results:: Laboratory Results - last 24 hr 02/06/23 22:20: WBC 16.1 H, RBC 4.91, Hgb 13.4 L, Hct 40.0 L, MCV 81.5, MCH 27.2, MCHC 33.4, RDW 13.8, Plt Count 235, MPV 7.6, Neut % (Auto) 91.4 H, Lymph % (Auto) 6.2 L, [place] % (Auto) 1.8, Eos % (Auto) 0.6, Baso % (Auto) 0.1, Neut # (Auto) 14.7 H, Lymph # (Auto) 1.0, [place] # (Auto) 0.3, Eos # (Auto) 0.1, Baso # (Auto) 0.0, Total Counted 100, Neutrophils % (Manual) 87 H, Lymphocytes % (Manual) 12, Monocytes % (Manual) 1 L, Platelet Estimate Normal, RBC Morphology Normal 02/06/23 22:20: Sodium 136, Potassium 3.2 L, Chloride 97 L, Carbon Dioxide 29, Anion Gap 13.2, BUN 14, Creatinine 1.00, Estimated Creat Clear 134, Estimated GFR 86, Est GFR ( Amer) 103, Glucose 106 H, Calcium 8.9, Total Bilirubin 0.8, AST 24, ALT 24, Alkaline Phosphatase 61, Total Creatine Kinase 27 L, Troponin I 0.04 H, C-Reactive Protein 48.2 H, Total Protein 7.4, Albumin 3.9, Globulin 3.5 H, Albumin/Globulin Ratio 1.1, Lipase 45, Salicylates < 1.0 L, Acetaminophen < 10 L 02/06/23 22:20: Plasma/Serum Alcohol < 10 02/06/23 22:20: ESR 20 H 02/06/23 22:20: Lactate 1.5 02/06/23 23:25: Urine Color Yellow, Urine Appearance Clear, Urine pH 6.0, Ur Specific [place] 1.010, Urine Protein Negative, Urine Glucose (UA) Negative, Urine Ketones Negative, Urine Blood 2+, Urine Nitrate Negative, Urine Bilirubin Negative, Urine Urobilinogen 0.2, Ur Leukocyte Esterase Negative, Urine RBC Occasional, Urine WBC None, Ur Squamous Epith Cells None, Urine Bacteria None 02/06/23 23:25: Urine Opiates Screen Negative, Urine Methadone Screen Negative, Ur Barbituates Screen Negative, Ur Phencyclidine Scrn Negative, Ur Amphetamines Screen Negative, U Benzodiazepines Scrn Negative, Urine Cocaine Screen Negative, U Marijuana (THC) Screen Negative 02/07/23 00:00: NT-Pro-B Natriuret Pep 1000 H 02/07/23 00:00: Procalcitonin 1.71 02/07/23 01:44: SARS-CoV-2 (PCR) Not detected, Influenza A Untype (PCR) Not detected, Influenza Type B (PCR) Not detected 02/07/23 01:44: Chlamy pneumoniae PCR Not detected, Adenovirus (PCR) Not detected, B. pertussis DNA (PCR) Not detected, Coronavirus OC43 (PCR) Not detected, Coronavirus HKU1 (PCR) Not detected, Coronavirus 229E (PCR) Not detected, SARS-CoV-2 (PCR) Not detected, Coronavirus NL63 (PCR) Not detected, Human Metapneumovir PCR Not detected, Influenza A (H1) PCR Not detected, Influ A (H1N1/09) PCR Not detected, Influenza A (H3) PCR Not detected, Influenza Type A (PCR) Not detected, Influenza Type B (PCR) Not detected, M. pneumoniae (PCR) Not detected, Parainfluenza 1 (PCR) Not detected, Parainfluenza 2 (PCR) Not detected, Parainfluenza 3 (PCR) Not detected, Parainfluenza 4 (PCR) Not detected, RSV (PCR) Not detected, Entero/Rhino (PCR) Not detected 02/07/23 02:35: Troponin I 0.15 H 02/07/23 03:30: Troponin I 0.19 H 02/07/23 03:30: WBC 14.1 H, RBC 4.53 L, Hgb 12.4 L, Hct 37.2 L, MCV 81.9, MCH 27.4, MCHC 33.5, RDW 13.8, Plt Count 191, MPV 7.5, Neut % (Auto) 92.6 H, Lymph % (Auto) 4.4 L, [place] % (Auto) 2.6, Eos % (Auto) 0.2, Baso % (Auto) 0.2, Neut # (Auto) 13.1 H, Lymph # (Auto) 0.6 L, [place] # (Auto) 0.4, Eos # (Auto) 0.0, Baso # (Auto) 0.0 02/07/23 03:30: Sodium 135 L, Potassium 3.5, Chloride 101, Carbon Dioxide 25, Anion Gap 12.5, BUN 16, Creatinine 1.40 H D, Estimated Creat Clear 96, Estimated GFR 58 L, Est GFR ( Amer) 70 D, Glucose 104 H, Calcium 7.4 L, Magnesium 1.2 L, Total Bilirubin 0.8, AST 28, ALT 27, Alkaline Phosphata
--- NOTE | 2023-02-07 09:04 | PC.NURSE ---
levophed drip titrated to 8 mcg per protocol due to blood pressure 113/52
--- NOTE | 2023-02-07 09:12 | PC.NURSE ---
COURTESY ROUND PATIENT AWAKE WITH VISITORS AT BEDSIDE AND NURSES . TRASH EMPTIED AND LINENS . CALL LIGHT WITHIN REACH .
--- NOTE | 2023-02-07 09:14 | PC.NURSE ---
Notified Dr. Everett of positive cultures.
--- NOTE | 2023-02-07 09:23 | PC.NURSE ---
levophed titrated to 4 mcg per protocol, aware
--- NOTE | 2023-02-07 09:28 | EXP.DC.SUM ---
General Admission date:: 02/07/23 Discharge date: 02/07/23 HPI HPI HPI: Mr. Ruiz is at the 2-year-old male who presented to the ER because of worsening back pain, fatigue, and weakness. States he had been with his girlfriend earlier in the day, was feeling tired. 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 She returned several hours later and he was still in the car, confused. She brought him to the ER for further evaluation. Of note he is on Suboxone. In the ER he did not improve with initial treatment. Was found to have an elevated white count, tachypnea, tachycardia. Had been complaining of back pain for over 2 weeks but is gotten more severe over the past day. CTs of head, C-spine, T-spine, L-spine with a broad-based lesion noted at L5-S1. Patient admitted for severe sepsis and further management. Received dose of vancomycin in the ER. Received 3 L of IV fluids in the ER. And a dose of Tylenol for fever. Hospital Course Hospital Course Hospital Course: 32-year-old male admitted for severe sepsis initially to hospital medicine service from the ER. 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 [place] and exposed to numerous farm animals as well as mosquitoes and ticks. Concern for epidural abscess given broad-based lesion found on CT of L-spine, 2 weeks of back pain, and positive blood culture (hematogenous spread?). Started on empiric antibiotics with vancomycin and subsequently ceftriaxone 2grams. Plan was made to obtain LP after admission with the assistance of anesthesia however given the location of the lesion, LP not performed at this time due to concern for risk of possible seeding of CSF if lesion accessed with spinal needle. Patient's blood pressure continued to drop with maps less than 65 after receiving 3.5 L of IV fluids between the ER and after admission. He was started on norepinephrine that is currently at 4 mcg/min. Blood pressures have improved with Levophed. Remains tachycardic and tachypneic. Oxygen saturation in the 90s on 2 L nasal cannula at this time. Patient appears to be protecting airway, no indication at this time for intubation. Differential diagnosis includes spinal abscess, bacteremia with staph, zoonotic disease, or other source of infection. Urinalysis was obtained and unremarkable. Blood cultures returned positive at approximately 10 hours with Staph aureus, MECa positive. Given severity of illness, need for MRI of spine and possible further intervention if he does have an epidural abscess, patient will be transferred to for further management. Appreciate their assistance in care. Other abnormal findings include slight YINA with creatinine 1.4, baseline as best we can tell is 1.0 per previous labs. Additionally has an elevated troponin at 0.15 on fourth GEN troponin. No EKG changes or ST depressions. Suspect type II NSTEMI from supply demand mismatch given severity of illness Chest imaging with no focal consolidation or concern for airspace disease Exam Data for Last 24 hours Vital signs and Labs for Last 24 Hours: Temp Pulse Resp BP Pulse Ox 103.2 F H 132 H 28 H 80/25 L 94 L 02/07/23 08:10 02/07/23 08:05 02/07/23 08:05 02/07/23 08:05 02/07/23 08:05 Laboratory Results - last 24 hr 02/06/23 22:20: WBC 16.1 H, RBC 4.91, Hgb 13.4 L, Hct 40.0 L, MCV 81.5, MCH 27.2, MCHC 33.4, RDW 13.8, Plt Count 235, MPV 7.6, Neut % (Auto) 91.4 H, Lymph % (Auto) 6.2 L, [place] % (Auto) 1.8, Eos % (Auto) 0.6, Baso % (Auto) 0.1, Neut # (Auto) 14.7 H, Lymph # (Auto) 1.0, [place] # (Auto) 0.3, Eos # (Auto) 0.1, Baso # (Auto) 0.0, Total Counted 100, Neutrophils % (Manual) 87 H, Lymphocytes % (Manual) 12, Monocytes % (Manual) 1 L, Platelet Estimate Normal, RBC Morphology Normal 02/06/23 22:20: Sodium 136, Potassium 3.2 L, Chloride 97 L, Carbon Dioxide 29, Anion Gap 13.2, BUN 14, Creatini
--- NOTE | 2023-02-07 09:39 | PC.NURSE ---
Levophed titrated to 2 mcg per protocol. BP 127/77
--- NOTE | 2023-02-07 09:59 | PC.NURSE ---
Report called to carlos enrique at [facility]
[2023-02-07 10:38] LABS: Reflex Lactic (2 hrs) Add Lactic Reflex
[2023-02-09 06:16] LABS: HIV Screen 4th Generation wRfx Non Reactive (Non Reactive)
== END 2023-02-07 13:13 | disposition short-term general hospital (02) | DRG 871 ==
LOC: ER 22:10 → 2ND 02-07 02:20
PROVIDERS: Nurse Practitioner Family; Admitting Provider Internal Medicine Adolescent Medicine; Emergency Provider Emergency Medicine; PCP Internal Medicine; Visit Provider Internal Medicine Adolescent Medicine
DX: A41.9 Sepsis, unspecified organism (principal); I21.A1 Myocardial infarction type 2; R65.21 Severe sepsis with septic shock; N17.9 Acute kidney failure, unspecified; F17.210 Nicotine dependence, cigarettes, uncomplicated; B95.8 Unspecified staphylococcus as the cause of diseases classified elsewhere; M51.36 Other intervertebral disc degeneration, lumbar region
CPT/HCPCS: 36415; 70450; 71045; 72126; 72129; 72132; 80053; 80305; 80329; 81001; 82550; 83605; 83690; 83735; 83880; 84145; 84484; 85007; 85025; 85651; 86140; 86703; 87040; 87077; 87186; 87581; 87632; 87636; 87798; 93005; 99285; C9803; G0432; J0131; J0696; J3370; Q9967; U0003; U0005

== ENCOUNTER 2023-03-01 12:42 | Outpatient (CLI) | payer MEDICAID, SELFPAY ==
[2023-03-01 12:50] VITALS: BMI 23.7
[2023-03-01 13:29] LABS: Basophils % 0.6 % (0.1-2.0); Eosinophils # 0.1 K/mm3 (0.0-0.4); Eosinophils % 1.2 % (0.1-12.0); Hematocrit 32.5 % (42.0-52.0); Hemoglobin 10.4 g/dL (14.1-18.0); Lymphocytes # 2.3 K/mm3 (0.7-4.5); Lymphocytes % 32.1 % (10-50); Mean Corpuscular Hemoglobin 26.2 pg (27.0-31.2); Mean Platelet Volume 7.5 fl (7.4-10.4); Monocytes # 0.4 K/mm3 (0.1-1.0); Monocytes % 6.2 % (1.7-9.3); Neutrophils # 4.3 K/mm3 (1.8-7.8); Platelet Count 333 K/mm3 (142-424); Red Blood Count 3.96 M/mm3 (4.60-6.20); White Blood Count 7.2 K/mm3 (4.8-10.8)
[2023-03-01 13:33] LABS: Alanine Aminotransferase 22 U/L (12-78); Alkaline Phosphatase 91 U/L (38-126); Aspartate Amino Transferase 24 U/L (17-59); Bilirubin,Direct 0.2 mg/dl (0.0-0.4); Bilirubin,Indirect 0.1 mg/dL (0.0-0.9); Bilirubin,Total 0.3 mg/dl (0.2-1.3); Bilirubin,Unconjugated 0.1 mg/dL (0.0-1.1); Blood Urea Nitrogen 6 mg/dl (9-20); Creatinine Clearance Estimated 142 mL/min (50-200); Estimated Glomerular Filt Rate 111 ml/min (>60); GFR (African American) 134 ML/MIN (>60)
[2023-03-01 13:34] LABS: Albumin Level 3.5 g/dl (3.5-5.0); Total Protein,Serum 7.1 g/dl (6.3-8.2)
[2023-03-01 13:39] LABS: C-Reactive Protein 33.1 mg/L (0-4)
[2023-03-01 13:50] LABS: Creatine Kinase < 20 U/L (55-170)
[2023-03-01 15:11] VITALS: BP 118/71; PULSE 78; RESP 14; TEMP 36.7; O2SAT 100
== END 2023-03-01 13:40 | disposition home or self-care (01) ==
PROVIDERS: PCP Internal Medicine; Visit Provider Internal Medicine
DX: Z45.2 Encounter for adjustment and management of vascular access device (principal); R78.81 Bacteremia; B95.62 Methicillin resistant Staphylococcus aureus infection as the cause of diseases classified elsewhere
CPT/HCPCS: 36592; 80076; 82550; 82565; 84520; 85025; 86140

== ENCOUNTER 2023-03-08 13:01 | Outpatient (CLI) | payer MEDICAID, SELFPAY ==
[2023-03-08 13:06] VITALS: BMI 23.7
[2023-03-08 13:20] LABS: Basophils # 0.1 K/mm3 (0-0.2); Basophils % 0.6 % (0.1-2.0); Eosinophils # 0.1 K/mm3 (0.0-0.4); Eosinophils % 1.2 % (0.1-12.0); Hematocrit 34.4 % (42.0-52.0); Hemoglobin 10.9 g/dL (14.1-18.0); Lymphocytes # 2.6 K/mm3 (0.7-4.5); Lymphocytes % 27.7 % (10-50); Mean Corpuscular HGB Conc 31.7 g/dL (31.8-35.4); Mean Corpuscular Hemoglobin 25.8 pg (27.0-31.2); Mean Corpuscular Volume 81.3 fl (80-94); Mean Platelet Volume 7.7 fl (7.4-10.4); Monocytes # 0.4 K/mm3 (0.1-1.0); Monocytes % 4.6 % (1.7-9.3); Neutrophils # 6.2 K/mm3 (1.8-7.8); Neutrophils % 65.8 % (37.0-80.0); Platelet Count 244 K/mm3 (142-424); Red Blood Count 4.23 M/mm3 (4.60-6.20); Red Cell Distribution Width 15.3 % (11.5-17.5); White Blood Count 9.4 K/mm3 (4.8-10.8)
[2023-03-08 13:27] LABS: Alanine Aminotransferase 21 U/L (12-78); Albumin Level 3.7 g/dl (3.5-5.0); Alkaline Phosphatase 79 U/L (38-126); Aspartate Amino Transferase 24 U/L (17-59); Bilirubin,Direct 0.1 mg/dl (0.0-0.4); Bilirubin,Indirect 0.3 mg/dL (0.0-0.9); Bilirubin,Total 0.4 mg/dl (0.2-1.3); Bilirubin,Unconjugated 0.3 mg/dL (0.0-1.1); Blood Urea Nitrogen 9 mg/dl (9-20); Creatine Kinase 23 U/L (55-170); Creatinine Clearance Estimated 114 mL/min (50-200); Estimated Glomerular Filt Rate 86 ml/min (>60); GFR (African American) 103 ML/MIN (>60); Total Protein,Serum 7.4 g/dl (6.3-8.2)
[2023-03-08 13:32] LABS: C-Reactive Protein 14.3 mg/L (0-4)
== END 2023-03-08 13:15 | disposition home or self-care (01) ==
LOC: INF 13:02
PROVIDERS: PCP Internal Medicine; Visit Provider Internal Medicine
DX: R78.81 Bacteremia (principal); B95.62 Methicillin resistant Staphylococcus aureus infection as the cause of diseases classified elsewhere
CPT/HCPCS: 36592; 80076; 82550; 82565; 84520; 85025; 86140

== ENCOUNTER 2023-03-15 12:38 | Outpatient (CLI) | payer MEDICAID, SELFPAY ==
[2023-03-15 12:42] VITALS: BMI 23.7
[2023-03-15 13:00] LABS: Basophils # 0.1 K/mm3 (0-0.2); Basophils % 0.6 % (0.1-2.0); Eosinophils # 0.1 K/mm3 (0.0-0.4); Eosinophils % 1.5 % (0.1-12.0); Hemoglobin 11.6 g/dL (14.1-18.0); Lymphocytes # 2.5 K/mm3 (0.7-4.5); Mean Corpuscular HGB Conc 31.2 g/dL (31.8-35.4); Mean Corpuscular Hemoglobin 25.6 pg (27.0-31.2); Mean Corpuscular Volume 81.9 fl (80-94); Mean Platelet Volume 7.4 fl (7.4-10.4); Monocytes # 0.4 K/mm3 (0.1-1.0); Monocytes % 4.9 % (1.7-9.3); Neutrophils # 5.1 K/mm3 (1.8-7.8); Platelet Count 247 K/mm3 (142-424); Red Blood Count 4.52 M/mm3 (4.60-6.20); Red Cell Distribution Width 15.6 % (11.5-17.5); White Blood Count 8.2 K/mm3 (4.8-10.8)
[2023-03-15 13:16] LABS: Alanine Aminotransferase 20 U/L (12-78); Albumin Level 3.8 g/dl (3.5-5.0); Alkaline Phosphatase 87 U/L (38-126); Aspartate Amino Transferase 27 U/L (17-59); Blood Urea Nitrogen 5 mg/dl (9-20); Creatine Kinase 32 U/L (55-170); Creatinine Clearance Estimated 126 mL/min (50-200); Estimated Glomerular Filt Rate 97 ml/min (>60); GFR (African American) 117 ML/MIN (>60); Total Protein,Serum 7.4 g/dl (6.3-8.2)
[2023-03-15 13:21] LABS: C-Reactive Protein 9.5 mg/L (0-4)
[2023-03-16 00:07] LABS: Bilirubin,Direct 0.2 mg/dl (0.0-0.4); Bilirubin,Indirect 0.2 mg/dL (0.0-0.9); Bilirubin,Total 0.4 mg/dl (0.2-1.3)
== END 2023-03-15 13:05 | disposition home or self-care (01) ==
LOC: INF 12:38
PROVIDERS: PCP Internal Medicine; Visit Provider Internal Medicine
DX: R78.81 Bacteremia (principal); B95.62 Methicillin resistant Staphylococcus aureus infection as the cause of diseases classified elsewhere
CPT/HCPCS: 36592; 80076; 82550; 82565; 84520; 85025; 86140

== ENCOUNTER 2023-03-24 11:40 | Outpatient (CLI) | payer MEDICAID, SELFPAY ==
[2023-03-24 11:43] VITALS: BMI 23.7
[2023-03-24 12:00] VITALS: BP 110/67; PULSE 76; RESP 18; O2SAT 100
[2023-03-24 12:10] LABS: Basophils # 0.1 K/mm3 (0-0.2); Eosinophils # 0.2 K/mm3 (0.0-0.4); Hematocrit 38.6 % (42.0-52.0); Hemoglobin 12.4 g/dL (14.1-18.0); Lymphocytes # 2.8 K/mm3 (0.7-4.5); Lymphocytes % 34.7 % (10-50); Mean Corpuscular Volume 81.2 fl (80-94); Mean Platelet Volume 7.5 fl (7.4-10.4); Monocytes # 0.4 K/mm3 (0.1-1.0); Monocytes % 4.9 % (1.7-9.3); Neutrophils # 4.7 K/mm3 (1.8-7.8); Neutrophils % 57.4 % (37.0-80.0); Platelet Count 264 K/mm3 (142-424); Red Blood Count 4.76 M/mm3 (4.60-6.20); Red Cell Distribution Width 15.7 % (11.5-17.5); White Blood Count 8.2 K/mm3 (4.8-10.8)
[2023-03-24 12:23] LABS: Alanine Aminotransferase 21 U/L (12-78); Albumin Level 4.2 g/dl (3.5-5.0); Alkaline Phosphatase 90 U/L (38-126); Aspartate Amino Transferase 27 U/L (17-59); Bilirubin,Indirect 0.2 mg/dL (0.0-0.9); Bilirubin,Total 0.2 mg/dl (0.2-1.3); Bilirubin,Unconjugated 0.3 mg/dL (0.0-1.1); Blood Urea Nitrogen 9 mg/dl (9-20); Creatine Kinase 36 U/L (55-170); Creatinine Clearance Estimated 126 mL/min (50-200); Estimated Glomerular Filt Rate 97 ml/min (>60); GFR (African American) 117 ML/MIN (>60); Total Protein,Serum 7.7 g/dl (6.3-8.2)
[2023-03-24 12:35] LABS: C-Reactive Protein 6.6 mg/L (0-4)
== END 2023-03-24 12:00 | disposition home or self-care (01) ==
LOC: INF 11:40
PROVIDERS: Internal Medicine; PCP Internal Medicine
DX: Z45.2 Encounter for adjustment and management of vascular access device (principal)
CPT/HCPCS: 36592; 80076; 82550; 82565; 84520; 85025; 86140; G0463

== ENCOUNTER 2024-01-14 14:30 | Outpatient (CLI) | payer MEDICAID, SELFPAY ==
--- NOTE | 2024-01-14 14:33 | CA_ITS ---
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), smoker,back pain 2D Dimensions IVSd 0.84 cm M: 0.6-1.2 LVEF (Visual) 49.60 % PWd 0.70 cm M: 0.6 - 1.2 LA Volume 43.20 mL LVDd 4.33 cm M: 4.2 - 5.9 LA Volume Index 20.67 mL/m2 (M/F) 16-34 LVDs 3.25 cm M: 2.5 - 4.0 EF AP4 57.20 % GL Strain -19.5 % M-Mode Dimensions RVDd 3.21 cm (0.9-2.6) LA Diam 3.03 cm (1.9-4.0) LVDd 4.83 cm (3.5-5.7) LVDs 3.60 cm (3.5-5.7) IVSd 0.93 cm (0.6-1.1) PWd 0.86 cm (0.6-1.1) EF (Teich) 50.10% FS 25.50% EDV (Teich) 109.10 mL TAPSE 2.96 (<1.7) ESV (Teich) 54.40 mL LV Diastology E Decel Time 517 (160-240 msec) E/A Ratio 1.2 Aortic Valve PRISCILLA Index 1.63 cm2/m2 AoV Peak Peter. 104.0 (50-130 cm/s) AO Peak GR. 4.30 mmHg AO Mean GR. 2.10 (<5 mmHg) AO VTI 21.3 (18-25 cm) PRISCILLA (VTI) 3.49 (2.5-4.5 cm2) Mitral Valve MV E Max Peter. 154.0 (40-130 cm/s) MV A Velocity 131.0 (40-130 cm/s) E/A Ratio 1.17 MV PHT 151.0 ms Left Ventricle The left ventricle is normal size. The left ventricular systolic function is normal. The left ventricular ejection fraction is within the normal range. There is normal left ventricular wall thickness. There is normal LV segmental wall motion. The left ventricular diastolic function is normal. LVEF is 60%. Right Ventricle The right ventricle is normal size. The right ventricular systolic function is normal. Atria The left atrium size is normal. The right atrium size is normal. There is no Doppler evidence of interatrial shunt. Aortic Valve The aortic valve opens well. There is no aortic valvular stenosis. No aortic regurgitation is present. Mitral Valve The mitral valve leaflets are thickened with presence of restricted leaflet mobility. Mild to moderate mitral stenosis. Mean MV gradient 7 mmHg (HR 60 bpm). MVA by PHT is 1.5 cm???. Mild mitral regurgitation. The MR jet is eccentric and posteriorly directed. No clear evidence of MV mobile echodensities. Tricuspid Valve The tricuspid valve leaflets are thin and pliable. Trace tricuspid regurgitation. There is insufficient TR jet to estimate RVSP. Pulmonic Valve The pulmonary valve is normal in structure. Trace pulmonic regurgitation. Great Vessels The aortic root is normal in size. The ascending aorta is not well-visualized. IVC is normal in size and collapses >50% with inspiration. Pericardium There is no pericardial effusion. Other Information Study Quality: Fair Conclusion Normal biventricular systolic function. Mild MR. The MR jet is eccentric and posteriorly directed. Mild to moderate MS. Mean MV gradient 7 mmHg (HR 60 bpm). MVA by PHT is 1.5 cm???. No evidence of mobile echodensities noted in the study. Of note, the patient is known to have history of MV endocarditis (2022), but no known history of MV repair or replacement in the available records. Electronically signed by : Monika Palacios MD 01/19/2024 11:23:46
== END 2024-01-14 23:59 | disposition home or self-care (01) ==
LOC: RT 14:30
PROVIDERS: PCP Internal Medicine; Visit Provider Thoracic Surgery (Cardiothoracic Vascular Surgery)
DX: I05.9 Rheumatic mitral valve disease, unspecified (principal)
CPT/HCPCS: 93306